=== PATIENT | male | born 1965 | race Caucasian/White ===

== ENCOUNTER 2024-11-11 21:12 | Inpatient (IN) | payer SELFPAY ==
[2024-11-11] MEDS ORDERED: Nitroglycerin 0.4 MG TAB (25 Tab Bottle) SL PRN (23:20)
[2024-11-11] MEDS ORDERED: Ondansetron PF 4 MG/2 ML Vial IVP PRN (23:23)
[2024-11-11] MEDS ORDERED: Calcium Carbonate 500 MG ChewTAB PO PRN (23:23)
[2024-11-11] MEDS ORDERED: Acetaminophen 325 MG TAB PO PRN (23:23)
[2024-11-11 23:28] VITALS: BMI 21.8
[2024-11-11] MEDS: Lidocaine 2% Viscous Solution 10 ML, Aluminum & Magnesium Hydroxide 30 ML SSW SCH (23:53)
[2024-11-12 00:13] LABS: Lipase 32.0 U/L (8-78)
[2024-11-12 04:40] LABS: ALT (SGPT) 15 U/L (Less than 45); AST (SGOT) 27 U/L (11-34); Albumin 3.2 g/dL (3.1-4.5); Alkaline Phosphatase 98 U/L (40-110); Anion Gap 11 mmol/L (10-20); BUN (Urea Nitrogen) 10 mg/dL (8.4-25.7); Bilirubin, Total 0.4 mg/dL (0.3-1.2); Calc. Creatinine Clearance 105 mL/min (70-130); Calcium 8.8 mg/dL (7.8-10.44); Carbon Dioxide 28 mmol/L (23-31); Chloride 107 mmol/L (98-107); Globulin 3.0 g/dL (2.4-3.5); Glucose 88 mg/dL (80-115); Potassium 4.4 mmol/L (3.5-5.1); Sodium 142 mmol/L (136-145)
[2024-11-12 05:38] LABS: #Basophils Less than 0.03 10x3/uL (0.0-0.2); #Eosinophils 0.05 10x3/uL (0.0-0.7); #Monocytes 0.49 10x3/uL (0.11-0.59); #Neutrophils 2.36 10x3/uL (1.40-6.50); %Basophils 0.3 % (0.0-1.0); %Eosinophils 1.3 % (0.0-10.0); %Lymphocytes 24.1 % (21.0-51.0); %Monocytes 12.7 % (0.0-10.0); %Neutrophils 61.1 % (42.0-75.0); Hematocrit 31.9 % (42.0-52.0); Hemoglobin 10.3 g/dL (14.0-18.0); Mean Corpuscular Hemoglobin 30.9 pg (27.0-31.0); Mean Corpuscular Volume 95.8 fL (78.0-98.0); Platelet Count 196 10x3/uL (130-400); Red Blood Cell (RBC) Count 3.33 mill/uL (4.70-6.10); White Blood Cell (WBC) Count 3.86 10x3/uL (4.8-10.8)
[2024-11-12] MEDS: Pantoprazole 40 MG DR.TAB PO SCH (09:28)
[2024-11-12] MEDS: hydrALAZINE 20 MG/ML VIAL SLOW IVP PRN (10:20)
[2024-11-12] MEDS ORDERED: Cyclobenzaprine 10 MG TAB PO PRN (11:17)
[2024-11-12] MEDS: Folic Acid 1 MG TAB PO SCH (13:39)
[2024-11-12] MEDS: Multivit, Therapeutic 1 TAB PO SCH (13:39)
[2024-11-12] MEDS: Cyclobenzaprine 10 MG TAB PO SCH (13:39)
[2024-11-12] MEDS: predniSONE 20 MG TAB PO SCH (13:40)
[2024-11-13 04:59] LABS: #Basophils Less than 0.03 10x3/uL (0.0-0.2); #Eosinophils Less than 0.03 10x3/uL (0.0-0.7); #Monocytes 0.30 10x3/uL (0.11-0.59); #Neutrophils 2.73 10x3/uL (1.40-6.50); %Basophils 0.0 % (0.0-1.0); %Eosinophils 0.0 % (0.0-10.0); %Lymphocytes 10.0 % (21.0-51.0); %Monocytes 8.8 % (0.0-10.0); %Neutrophils 80.6 % (42.0-75.0); Hematocrit 35.9 % (42.0-52.0); Hemoglobin 11.7 g/dL (14.0-18.0); Mean Corpuscular Hemoglobin 31.0 pg (27.0-31.0); Mean Corpuscular Volume 95.0 fL (78.0-98.0); Platelet Count 201 10x3/uL (130-400); Red Blood Cell (RBC) Count 3.78 mill/uL (4.70-6.10); White Blood Cell (WBC) Count 3.39 10x3/uL (4.8-10.8)
[2024-11-13 05:18] LABS: Anion Gap 12 mmol/L (10-20); BUN (Urea Nitrogen) 10 mg/dL (8.4-25.7); CRP, High Sensitivity at Bryan 0.76 mg/dL (< or = 0.5); Calc. Creatinine Clearance 104 mL/min (70-130); Calcium 9.5 mg/dL (7.8-10.44); Carbon Dioxide 28 mmol/L (23-31); Chloride 105 mmol/L (98-107); Glucose 133 mg/dL (80-115); Potassium 4.8 mmol/L (3.5-5.1); Sodium 140 mmol/L (136-145)
[2024-11-13] MEDS: predniSONE 20 MG TAB PO SCH (09:32)
[2024-11-13 12:20] VITALS: TEMP 97.8
[2024-11-13 14:42] VITALS: BP 156/81
[2024-11-15] MEDS ORDERED: Thiamine 100 MG TAB PO SCH (00:15)
== END 2024-11-13 14:30 | disposition home or self-care (01) | DRG 897 ==
LOC: 2NO 22:57 → OBSVTOIN 23:29
PROVIDERS: ADMIT Student in an Organized Health Care Education/Training Program; ATTEND Internal Medicine
PROC: HZ2ZZZZ Detoxification Services for Substance Abuse Treatment (ICD-10-PCS; principal; 2024-11-11)
DX: F10.239 Alcohol dependence with withdrawal, unspecified (principal); R07.9 Chest pain, unspecified; I10 Essential (primary) hypertension; F32.A Depression, unspecified; F41.9 Anxiety disorder, unspecified; Z79.899 Other long term (current) drug therapy
CPT/HCPCS: 36415; 71045; 78452; 80048; 80053; 80307; 83690; 84484; 85025; 86141; 93005; 93010; 93017; 94760; A9502; J0360; J2785; J3411; J7120; J7512; Q0177